=== PATIENT | male | born 1990 | race Caucasian/White ===

== ENCOUNTER 2022-10-09 12:46 | Emergency (ER) | payer BC ==
[~2022-10-09] VITALS: Ht 182.9 cm; Wt 72.6 kg
[2022-10-09 12:46] VITALS: BP 146/79
--- NOTE | 2022-10-09 12:46 | NUR ---
ARRIVAL PATIENT ARRIVED TO [facility] AMBULATORY, C/O BACK PAIN FOR THE PAST 3-4 DAYS, DOES HAVE HISTORY OF BACK PAIN AND IS SCHEDULED TO SEE A SURGEON ON THE , DENIES TAKING ANY MEDICATIONS HAT COPYIST, PAIN CONTINUES, CAME TO THE ED FOR EVAL, VITAL SIGNS TAKEN AND DOCTOR NOTIFIED OF PATIENT'S ARRIVAL.
[2022-10-09] MEDS ORDERED: LIDODERM TP STA (13:11)
[2022-10-09] MEDS ORDERED: TORADOL IM STA (13:11)
[2022-10-09] MEDS ORDERED: ROBAXIN PO STA (13:11)
[2022-10-09] MEDS ORDERED: ROBAXIN ONE (13:27)
[2022-10-09] MEDS ORDERED: TORADOL ONE (13:27)
[2022-10-09] MEDS ORDERED: LIDODERM TP ONE (13:27)
[2022-10-09 14:03] VITALS: BP 146/77
--- NOTE | 2022-10-09 15:15 | NUR ---
ELOPED DOCTOR MEGGAN TO ROOM TO CHECK ON PATIENT, PATIENT WAS NOT FOUND, WILL DISCHARGE AN ELOPE.
--- NOTE | 2022-10-09 15:20 | ER.PDOC ---
General Chief Complaint: Lower Back Pain or Injury Stated Complaint: BACK PAIN Time seen by MD: 13:15 Source: patient Exam Limitations: no limitations History of Present Illness Initial Comments Patient is a 32-year-old male who states he has a past medical history of back pain that he is apparently can have surgery on later this week who comes in with back pain that he says is unbearable at this time. Patient states has been going on for quite some time but it got unbearable over the past day says it sore nature, radiates down both his legs says that its chronic and he supposed to have back surgery but cannot remember his surgeon's name or where he was going to have surgery. Patient is able to ambulate in the room. Denies any o ther symptoms or concerns at this time states it is 10 out of 10 sharp to sore nature pain. Allergies: Coded Allergies: No Known Allergies (Unverified , 10/09/22) Past Medical History Medical History: other (Chronic back pain) Surgical History: other Family History Significant Family History: no pertinent family hx Social History Smoking: less than 1 pack/day Alcohol Use: heavy Drug Use: none Reviewed Nursing Reviewed: Vital Signs, Abn. Noted, Nursing Assessment Review of Systems Constitutional: no symptoms reported EENTM: no symptoms reported Respiratory: no symptoms reported Cardiovascular: no symptoms reported Gastrointestinal: no symptoms reported Genitourinary: no symptoms reported Musculoskeletal: back pain Skin: no symptoms reported Psychiatric/Neurological: no symptoms reported Physical Exam General Appearance: Anxious HEENT: PERRL/EOMI, Normal ENT Inspection, TMs Normal, Pharynx Normal Neck: Non-Tender, Normal Alignment Cardiovascular/Respiratory: Regular Rate, Rhythm, No M/R/G, Normal Peripheral Pulses, No JVD, Normal Breath Sounds, No Respiratory Distress Gastrointestinal: Normal Bowel Sounds, No Organomegaly, No Pulsatile Mass, Non Tender, Soft Back: Muscle Spasm Extremities: No Evidence of Injury, Normal Range of Motion, Non-Tender, No Pedal Edema, Pelvis Stable Neuro/Psych: Alert, 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/symmetrical, mood/effect nml, No Motor/Sensory Deficits, Relexes nml Skin: Normal Color, Warm/Dry Results/Orders Results/Orders Orders - ORTEGA BRODERICK MD Ketorolac Tromethamine (Toradol) (10/09/22 13:11) Methocarbamol (Robaxin) (10/09/22 13:11) Lidocaine (Lidoderm) (10/09/22 13:11) Methocarbamol (Robaxin) (10/09/22 13:27) Lidocaine (Lidoderm) (10/09/22 13:27) Ketorolac Tromethamine (Toradol) (10/09/22 13:27) Vital Signs Date Time Temp Pulse Resp B/P (MAP) Pulse Ox O2 Delivery O2 Flow Rate FiO2 10/09/22 14:03 98.3 87 20 146/77 (100) 96 Room Air* 0 21 10/09/22 12:46 98.3 103 20 146/79 (101) 98 Room Air* 0 21 10/09/22 12:46 98.3 103 20 10/09/22 12:46 98.3 103 20 98 Administered Medications Medications (Trade) Dose Ordered Sig/Ancelmo Route PRN Reason Start Time Stop Time Status Last Admin Dose Admin Ketorolac Tromethamine (Toradol) 15 mg OT STAT IM 10/09/22 13:11 10/09/22 13:12 DC 10/09/22 13:32 15 MG Lidocaine (Lidoderm) 1 patch OT STAT TP 10/09/22 13:11 10/09/22 13:12 DC 10/09/22 13:41 1 PATCH Methocarbamol (Robaxin) 500 mg STAT STAT PO 10/09/22 13:11 10/09/22 13:12 DC 10/09/22 13:32 500 MG Progress Progress Patient here with musculoskeletal back pain we will try multimodal pain control with ketorolac Robaxin and Lidoderm patch and then reassess at this time no need for imaging as this is chronic and patient already has surgery scheduled he states and nothing acute happened such as an injury. 1515 when in the room to reassess the patient however he had eloped attempted to call him at 1517 he did not answer the phone to consider this an elopement at this time. ER DEPART Departure Time of Disposition: 15:15 Disposition: 07 LEFT AGAINST MEDICAL ADVICE Impression: Primary Impression: Low back pain Condition: Eloped Referrals: PCP,UNKNOWN (PCP) PRIMARY CARE PROVIDER Duration or Time Spent with Pa: 15 Problem Qualifiers Primary Impression: Low back pain Chronicity: chronic Back pain laterality: bilateral Sciatica presence: with sciatica Sciatica laterality: bilateral sciatica Qualified Codes: M54.42 - Lumbago with sciatica, left side; M54.41 - Lumbago with sciatica, right side; G89.29 - Other chronic pain ORTEGA BRODERICK MD Oct 09, 2022 15:20
== END 2022-10-09 15:15 | disposition left against medical advice (07) ==
LOC: ER 12:46
DX: M54.42 Lumbago with sciatica, left side (principal); G89.29 Other chronic pain
CPT/HCPCS: 99284; 96372; J2800; J1885

== ENCOUNTER 2022-10-11 07:35 | Emergency (ER) | payer BC ==
[~2022-10-11] VITALS: Ht 182.9 cm; Wt 72.6 kg
[2022-10-11 07:46] VITALS: BP 152/77
[2022-10-11] MEDS ORDERED: NORCO 10MG PO STA (08:01)
[2022-10-11] MEDS ORDERED: PREDNISONE PO STA (08:01)
--- NOTE | 2022-10-11 08:08 | ER.PDOC ---
General Chief Complaint: Lower Back Pain or Injury Stated Complaint: BACK/LEG PAIN Time seen by MD: 08:00 Source: patient Exam Limitations: no limitations History of Present Illness Initial Comments +ve MRI FOR DISC PROLAPSE Timing/Duration: changing over time Severity/Quality: moderate Radiation: feet Method of Injury: unknown Modifying Factors: improves with immobilization, improves with movement, improves with pain medication Prior symptoms/Treatment: Similar symptoms previous, Recenly Seen, Treated by Doctor Allergies: Coded Allergies: No Known Allergies (Unverified , 10/09/22) Past Medical History Medical History: no pertinent history Surgical History: other Social History Alcohol Use: heavy Drug Use: marijuana Reviewed Nursing Reviewed: Vital Signs, Abn. Noted Review of Systems Constitutional: no symptoms reported EENTM: no symptoms reported Respiratory: no symptoms reported Cardiovascular: no symptoms reported Gastrointestinal: no symptoms reported Genitourinary: no symptoms reported Musculoskeletal: no symptoms reported Skin: no symptoms reported Psychiatric/Neurological: numbness, paresthesia, pre-existing deficit, tingling , weakness All Other Systems: Reviewed and Negative Physical Exam 1 - tender Extremities: Other Neuro/Psych: antalgic gait, Abnormal Gait, Motor Weakness, Sensory Deficit Skin: Normal Color, Warm/Dry Results/Orders Results/Orders Orders - KELLY COSME MD Prednisone (Prednisone) (10/11/22 08:01) Hydrocodone/Acetaminophen ([place] 10mg) (10/11/22 08:01) Vital Signs Date Time Temp Pulse Resp B/P (MAP) Pulse Ox O2 Delivery O2 Flow Rate FiO2 10/11/22 07:46 97.9 98 18 152/77 (102) 97 Room Air* 0 21 10/11/22 07:46 97.9 98 18 97 10/11/22 07:46 97.9 98 18 ER DEPART Departure Time of Disposition: 08:22 Disposition: 01 HOME / SELF CARE / HOMELESS Impression: Primary Impression: Sciatica Condition: Improved Referrals: PCP,UNKNOWN (PCP) PRIMARY CARE PROVIDER Duration or Time Spent with Pa: 14m KELLY COSME MD Oct 11, 2022 08:08
[2022-10-11] MEDS ORDERED: PREDNISONE ONE (08:31)
[2022-10-11] MEDS ORDERED: NORCO 10MG PO ONE (08:32)
== END 2022-10-11 08:37 | disposition home or self-care (01) ==
LOC: ER 07:35
DX: M54.40 Lumbago with sciatica, unspecified side (principal); F12.90 Cannabis use, unspecified, uncomplicated
CPT/HCPCS: 99283; J7512